=== PATIENT | female | born 1965 | race Caucasian/White ===

== ENCOUNTER → 2021-02-03 | Day surgery (SDC) | payer MEDICARE ==
[~2021-02-03] MED LIST: ASPIRIN 325MG325 MG PO; BASAGLAR K100 UNIT/1 SC; COMPAZINE 10MG10 MG PO; CRESTOR10 MG PO; EQUATE ACID REDUCER PO; IMDUR ER TAB 6060 MG PO; JANUVIA100 MG PO; JARDIANCE10 MG PO; LEVOTHYROXINE112 MCG PO; MECLIZINE HCL25 MG PO; METFORMIN HCL1000 MG PO; METOPROLOL TART25 MG PO; ONDANSETRON ODT4 MG SL; PLAVIX 75 MG TA75 MG PO; ZOFRAN ODT 4 MG4 MG PO
== END | disposition home or self-care (01) ==
LOC: OR 06:13
DX: Z12.11 Encounter for screening for malignant neoplasm of colon (principal); K57.30 Diverticulosis of large intestine without perforation or abscess without bleeding; K64.0 First degree hemorrhoids; Z86.010 Personal history of colon polyps; K59.09 Other constipation; I10 Essential (primary) hypertension; E66.9 Obesity, unspecified; E11.9 Type 2 diabetes mellitus without complications; E03.9 Hypothyroidism, unspecified; Z85.42 Personal history of malignant neoplasm of other parts of uterus
CPT/HCPCS: 82962; J2704; J7040

== ENCOUNTER → 2021-12-30 | Outpatient (CLI) | payer MEDICARE | LOC: KOH-I 12:34 | DX: F17.210 Nicotine dependence, cigarettes, uncomplicated (principal); K43.9 Ventral hernia without obstruction or gangrene; Z78.0 Asymptomatic menopausal state | CPT/HCPCS: 71271 ==

== ENCOUNTER → 2022-01-19 | Outpatient (CLI) | payer MEDICARE, OTHER | LOC: EXRD 01-02 13:00 | DX: Z78.0 Asymptomatic menopausal state (principal) | CPT/HCPCS: 77080 ==